=== PATIENT | female | born 1965 | race Caucasian/White ===

== ENCOUNTER → 2017-06-19 | Outpatient (CLI) | payer OTHER ==
[~2017-06-19] VITALS: Ht 172.7 cm; Wt 117.9 kg
[~2017-06-19] MED LIST: BIOTIN1 MG PO; BYSTOLIC10 MG PO; GLUCOPHAGE1000 MG PO; GLUCOTROL5 MG PO; IRON325 MG PO; LEVOTHYROXINE100 MCG PO; LIPITOR40 MG PO; MOMETASONE FURO45 G1 TP; ONCE DAILY1 EACH PO; PRINZIDE 20-121 EACH PO
[2017-06-19 08:30] LABS: HEMATOCRIT 39.4 % (36.0-46.0); MCV 84.7 FL (83-99)
[2017-06-19 08:50] LABS: CHLORIDE 102 mEq/L (99-109); POTASSIUM 3.7 mEq/L (3.7-5.4); SODIUM 140 mEq/L (136-147)
[2017-06-19 08:51] LABS: GLUCOSE 145 mg/dL (70-99)
[2017-06-19 08:53] LABS: ANION GAP 13 MEQ/L (2-14)
[2017-06-19 08:54] LABS: POINT-OF-CARE METER ID UU14174212
[2017-06-19 08:55] LABS: GFR ESTIMATE (CALCULATED) > 59 mL/min/
[2017-06-19 08:56] LABS: UREA NITROGEN (BUN) 11 mg/dL (9-23)
== END | disposition home or self-care (01) ==
LOC: AMB 08:05
PROVIDERS: Internal Medicine
PROC: 0DJD8ZZ Inspection of Lower Intestinal Tract, Via Natural or Artificial Opening Endoscopic (ICD-10-PCS; principal; 2017-06-19)
DX: Z12.11 Encounter for screening for malignant neoplasm of colon (principal); K57.90 Diverticulosis of intestine, part unspecified, without perforation or abscess without bleeding; D64.9 Anemia, unspecified; I35.8 Other nonrheumatic aortic valve disorders; I10 Essential (primary) hypertension; E78.5 Hyperlipidemia, unspecified; E03.9 Hypothyroidism, unspecified; E55.9 Vitamin D deficiency, unspecified; Z88.5 Allergy status to narcotic agent; Z82.0 Family history of epilepsy and other diseases of the nervous system; Z82.3 Family history of stroke; Z83.49 Family history of other endocrine, nutritional and metabolic diseases; Z82.49 Family history of ischemic heart disease and other diseases of the circulatory system; Z79.84 Long term (current) use of oral hypoglycemic drugs
CPT/HCPCS: 80048; 82948; 85014; 85018; 93005